=== PATIENT | female | born 2000 | race Caucasian/White ===

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

== ENCOUNTER → 2024-07-01 | Outpatient (CLI) | payer OTHER | LOC: NEUROMAIN 13:07 | PROVIDERS: ATTEND Psychiatry & Neurology Neurology | DX: R40.4 Transient alteration of awareness (principal); G40.A09 Absence epileptic syndrome, not intractable, without status epilepticus | CPT/HCPCS: 95812 ==